=== PATIENT | female | born 1965 | race Two or more races ===

== ENCOUNTER → 2024-11-18 14:49 | Outpatient (BNVA) | payer OTHER, SELFPAY | PROVIDERS: PCP Internal Medicine; Visit Provider Student in an Organized Health Care Education/Training Program | DX: M06.9 Rheumatoid arthritis, unspecified (principal); Z51.81 Encounter for therapeutic drug level monitoring; Z79.69 Long term (current) use of other immunomodulators and immunosuppressants | CPT/HCPCS: 99212 ==

== ENCOUNTER 2025-06-09 13:59 | Outpatient (REF) | payer OTHER, SELFPAY ==
[2025-06-09 17:30] LABS: MANUAL DIFF FLAG NO
[2025-06-09 17:58] LABS: Hematocrit 42.2 % (37.0-47.0); Hemoglobin 13.6 g/dl (12.0-16.0); Imm Gran Abs Auto 0.01 X10*3/uL (0.00-0.03); Imm Gran Pct Auto 0.2 % (0.0-0.4); Lymphocytes Absolute Auto 1.3 X10*3/uL (1.2-4.9); Mean Corpuscular HGB Conc 32.2 g/dl (31.0-35.0); Mean Corpuscular Hemoglobin 28.7 pg (27.0-33.0); Mean Corpuscular Volume 89.0 fL (80.0-98.0); NRBC Abs Auto 0.000 X10*3/uL (0.0-0.012); NRBC Pct Auto 0.0 /100WBC (0.0-0.2); Platelet Count 229 X10*3/uL (160-400); Red Blood Count 4.74 X10*6/uL (4.20-5.50); White Blood Count 5.3 X10*3/uL (4.8-10.8)
[2025-06-09 18:16] LABS: Alanine Aminotransferase 21 U/L (0-31); Albumin Level 4.4 g/dL (3.5-5.0); Alkaline Phosphatase 110 U/L (39-117); Anion Gap 11 (12-20); Aspartate Amino Transferase 22 U/L (5-31); Blood Urea Nitrogen 17 mg/dL (9-16); Calcium 9.4 mg/dL (8.4-10.2); Carbon Dioxide 27 mmol/L (22-29); Chloride 106 mmol/L (96-108); Estimated Glomerular Filt Rate > 60; Potassium 3.9 mmol/L (3.3-5.1); Sodium 140 mmol/L (135-145); Total Protein 7.2 g/dL (6.5-8.0)
[2025-06-10 08:00] LABS: HBS Num1 35.10 mIU/mL (0-7.99); HBc Num1 0.07 S/CO (0.00-0.79); HBsAGNum1 0.57 S/CO (0.00-0.99); Hepatitis A Antibody IgM 0.24 Index (0-0.79); Hepatitis B Surface Antigen Negative (Negative); ~HepC Num1 0.11 S/CO (0.00-0.79); ~Hepatitis A Antibody IgM Nonreactive (Nonreactive); ~Hepatitis B Surface Antibody REACTIVE (Nonreactive); ~Hepatitis C Antibody Nonreactive (Nonreactive)
[2025-06-12 08:33] LABS: TS Negative Control Passed; TS Panel A 0; TS Panel B 0; TS Positive Control Passed; TSpotTB Negative (Negative)
== END 2025-06-09 14:00 | disposition home or self-care (01) ==
LOC: HO.HKASLDS 13:59
PROVIDERS: PCP Internal Medicine; Visit Provider Student in an Organized Health Care Education/Training Program
DX: M06.09 Rheumatoid arthritis without rheumatoid factor, multiple sites (principal); M17.0 Bilateral primary osteoarthritis of knee; Z51.81 Encounter for therapeutic drug level monitoring; Z79.69 Long term (current) use of other immunomodulators and immunosuppressants
CPT/HCPCS: 20610; 36415; 80053; 85025; 85652; 86140; 86481; 86704; 86706; 86709; 86803; 87340; 99212; J2003; J3300

== ENCOUNTER 2025-06-09 13:59 | Outpatient (AMB) | payer OTHER, SELFPAY ==
--- OUTSIDE RECORDS SUMMARY | 2025-06-09 14:08 | XMS_ITS ---
Author Name [facility] Organization Unknown Care Team Organization Name Specialty Phone Email Start Date End Da te [facility] John Torrez Primary Care 08/27/2022 06/07/2024
--- OUTSIDE RECORDS SUMMARY | 2025-06-09 14:08 | XMS_ITS | Clinical Summary ---
Author Organization [facility] [place] Address [address] [place] [address] Care Team Providers Care Donor Processor Name Role Phone Yenny Torrez MD Primary Care Provider [phone] Allergies Active Allergy Reactions Criticality Noted Date Comments Sulfa (Sulfonamide Antibiotics) Other 10/20 Medications No known medications Active Problems Problem Noted Date Diagnosed Date Colon cancer screening 03/15/2025 Rheumatoid arthritis (CMS/[facility] V24, CMS/[facility] V28) 03/15/2025 Obesity (BMI 30-39.9) 03/15/2025 Encounters Date Type Department Care Team Description 03/15/2025 11:30 AM EDT Office Visit Adult Medicine [address] [id number] Yenny Torrez MD Routine general medical examination at a health care facility (Primary Dx); Screening mammogram for breast cancer; Screening for diabetes mellitus; Screening, lipid; Screening, anemia, deficiency, iron; Colon cancer screening; Rheumatoid arthritis, involving unspecified site, unspecified whether rheumatoid factor present (CMS/[facility] V24, CMS/[facility] V28); Obesity (BMI 30-39.9) from Last 3 Months Immunizations Name Administration Dates Next Due Influenza trivalent, with pr eservative (Fluzone; Afluria) 6mo and older 08/23/2014 Td, Unspecified 01/27/2001 Tdap Tetanus diptheria acell ular pertussis (Boostrix; Adacel) 7yo and older 07/17/2015 Surgical History Surgery Date Site/Laterality Comments OTHER SURGICAL HISTORY 06/03 PROCEDURE: MAMMOGRAM Medical History Medical History Date Comments Fatigue 03/12/2011 DX:Fatigue Family History Medical History Relation Name Comments Diabetes Aunt Stroke Father -70s Diabetes Maternal Grandmother Arthritis Mother Arthritis Sister Relation Name Status Comments Aunt Father Maternal Grandmother Mother Alive Sister Alive Social History Tobacco Use Types Packs/Day Years Used Date Smoking Tobacco: Former Smokeless Tobacco: Never Tobacco Cessation:Counseling Given: Not Answered Alcohol Use Standard Drinks/Week Comments No 0 (1 standard drink = 0.6 oz pur e alcohol) Comments No Sex and Gender Information Value Date Recorded Sex Assigned at Not on file Legal Sex Female 9:17 AM EDT Gender Identity Not on file Sexual Orientation Not on file Obstetrics History Last Filed Vital Signs Vital Sign Reading Time Taken Comments Blood Pressure 102/60 03/15/2025 11:24 AM EDT Pulse 79 03/15/2025 11:24 AM EDT Temperature 36.2 C (97.2 F) 03/15/2025 11:24 AM EDT Respiratory Rate 16 03/15/2025 11:24 AM EDT Oxygen Saturation - - Inhaled Oxygen Concentration - - Weight 92.5 kg (204 lb) 03/15/2025 11:24 AM EDT Height 166 cm (5' 5.35 ) 03/15/2025 11:24 AM EDT Body Mass Index 33.58 03/15/2025 11:24 AM EDT Plan of Treatment Upcoming Encounters Date Type Department Care Team (Late st Contact Info) Description 03/16/2026 11:30 AM EDT Office Visit Adult Medicine [facility] [address] [place] [address] Yenny Torrez MD [address] [place] [address] Health Maintenance Due Date Last Done Comments Breast Cancer Screening 1965 Pneumococcal Vaccine: 50+ Years (1 of 1 - PCV) 2014 Zoster Vaccines (1 of 2) 2014 Cervical Cancer Screening: P ap Smear 04/03/2015 04/03/2012, 04/03/2012 Colorectal Cancer Screening: Colonoscopy 01/16/2021 HIV Screening 01/16/2021 Social Influencers of Health Screening 01/16/2021 Hepatitis B Vaccines (2 of 3 - 19+ 3-dose series) 04/02/2023 03/05/2023 COVID-19 Vaccine (3 - 2023-2 5 season) 2024 06/30/2021, 02/15/2021 Depression Screening 10/20/2024 Influenza Vaccine (#1) 2025 08/23/2014 DTaP,Tdap,and Td Vaccines (3 - Td or Tdap) 07/17/2025 07/17/2015, 01/27/2001 Cholesterol Screening (Lipid Panel) 03/15/2030 03/15/2025, 05/02/2015 RSV Immunization Adult Patients (1 - 1-dose 75+ series) 2039 Hepatitis C Screening Completed 02/22/2011 HIB Vaccines Aged Out No longer eligi ble based on patient's age to complete this topic HPV Vaccines Aged Out No longer eligi ble based on patient's age to complete this topic Hepatitis A Vaccines Aged Out No long er eligible based on patient's age to complete this topic IPV Vaccines Aged Out No longer eligi ble based on patient's age to complete this topic MMR Vaccines Aged Out No longer eligi ble based on patient's age to complete this topic Meningococcal ACWY Vaccine Aged Out N o longer eligible based on patient's age to complete this topic Meningococcal B Vaccine Aged Out No l onger eligible based on patient's age to complete this topic RSV Immunization Patients Under 20 months Aged Out No longer eligible b ased on patient's age to complete this topic Varicella Vaccines Aged Out No longer eligible based on patient's age to complete this topic Procedures Procedure Name Priority Date/Time Associated Diagnosis Comments CBC WITH AUTO DIFFERENTIAL Routine 03/15/2025 12:27 PM EDT Screening, anemia, deficiency, iron CBC AND DIFFERENTIAL Routine 03/15/2025 12:27 PM EDT Screening, anemia, deficiency, iron COMPREHENSIVE METABOLIC PANEL Routine 03/15/2025 12:27 PM EDT Screening for diabetes mellitus LIPID PANEL WITH REFLEX TO DIRECT LDL Routine 03/15/2025 12:27 PM EDT Screening, lipid HM HPV Routine 04/03/2012 HEPATITIS C SCREENING Routine 02/22/2011 from Last 3 Months or Most Recently Relevant to Health Maintenance Results * (ABNORMAL) Lipid panel with reflex to direct LDL (03/15/2025 12:27 PM EDT) Cholesterol 206(H) 0 - 200 mg/dL LAB CHEMISTRY METHOD 03/15/2025 4:43 PM EDT [facility] Triglycerides 109 0 - 150 mg/dL LAB CHEMISTRY METHOD 03/15/2025 4:43 PM EDT [facility] HDL 56 >=40 mg/dL LAB CHEMISTRY METHOD 03/15/2025 4:43 PM EDT [facility] LDL Calculated 128(H) 0 - 100 mg/dL LAB CHEMISTRY METHOD 03/15/2025 4:43 PM EDT [facility] VLDL Cholesterol Jose Alejandro 21.8 mg/dL LAB CHEMISTRY METHOD 03/15/2025 4:43 PM EDT [facility] Non HDL Chol. (LDL+VLDL) 150(H) <145 mg/dL LAB CHEMISTRY METHOD 03/15/2025 4:43 PM EDT [facility] Chol/HDL Ratio 3.7 0.0 - 4.4 LAB CHEMISTRY METHOD 03/15/2025 4:43 PM EDT [facility] Blood Venous blood specimen / Unknown Venipuncture / Unknown 03/15/2025 12:27 PM EDT 03/15/2025 12:27 PM EDT us C Perico Torrez MD LAB BLOOD ORDERABLES Final Res ult [facility] [address] [place] [address], [place] [phone] * (ABNORMAL) CBC auto differential (03/15/2025 12:27 PM EDT) WBC 5.9 4.8 - 10.8 K/mcL LAB HEMETOLOGY METHOD 03/15/2025 3:09 PM [facility] RBC 4.90(H) 3.80 - 4.80 M/mcL LAB HEMETOLOGY METHOD 03/15/2025 3:09 PM [facility] Hemoglobin 14.1 11.5 - 16.0 g/dL LAB HEMETOLOGY METHOD 03/15/2025 3:09 PM [facility] Hematocrit 45.1 35.0 - 47.0 % LAB HEMETOLOGY METHOD 03/15/2025 3:09 PM [facility] MCV 92.8 79.0 - 98.0 FL LAB HEMETOLOGY METHOD 03/15/2025 3:09 PM [facility] MCH 29.0 27.0 - 32.0 pcg LAB HEMETOLOGY METHOD 03/15/2025 3:09 PM [facility] MCHC 31.3(L) 32.0 - 37.0 g/dL LAB HEMETOLOGY METHOD 03/15/2025 3:09 PM [facility] RDW 12.9 11.0 - 15.0 % LAB HEMETOLOGY METHOD 03/15/2025 3:09 PM [facility] Platelets 238 130 - 400 K/mcL LAB HEMETOLOGY METHOD 03/15/2025 3:09 PM [facility] MPV 11.1(H) 7.0 - 11.0 FL LAB HEMETOLOGY METHOD 03/15/2025 3:09 PM [facility] NRBC 0.0 <1.0 % LAB HEMETOLOGY METHOD 03/15/2025 3:09 PM [facility] NRBC Absolute 0.00 <0.10 K/mcL LAB HEMETOLOGY METHOD 03/15/2025 3:09 PM [facility] Neutrophils Relative 63.7 % LAB HEMETOLOGY METHOD 03/15/2025 3:09 PM [facility] Lymphocytes Relative 25.2 % LAB HEMETOLOGY METHOD 03/15/2025 3:09 PM [facility] Monocytes Relative 7.8 % LAB HEMETOLOGY METHOD 03/15/2025 3:09 PM [facility] Eosinophils Relative 2.2 % LAB HEMETOLOGY METHOD 03/15/2025 3:09 PM [facility] Basophils Relative 0.9 % LAB HEMETOLOGY METHOD 03/15/2025 3:09 PM [facility] Immature Granulocytes Relative 0.2 % LAB HEMETOLOGY METHOD 03/15/2025 3:09 PM [facility] Neutrophils Absolute 3.75 1.50 - 7.00 K/mcL LAB HEMETOLOGY METHOD 03/15/2025 3:09 PM [facility] Lymphocytes Absolute 1.48 1.00 - 5.00 K/mcL LAB HEMETOLOGY METHOD 03/15/2025 3:09 PM [facility] Monocytes Absolute 0.46 0.20 - 1.00 K/mcL LAB HEMETOLOGY METHOD 03/15/2025 3:09 PM [facility] Eosinophils Absolute 0.13 0.00 - 0.50 K/mcL LAB HEMETOLOGY METHOD 03/15/2025 3:09 PM [facility] Basophils Absolute 0.05 0.00 - 0.20 K/mcL LAB HEMETOLOGY METHOD 03/15/2025 3:09 PM [facility] Immature Granulocytes Absolute 0.01 0.00 - 0.03 K/mcL LAB HEMETOLOGY METHOD 03/15/2025 3:09 PM [facility] Blood Venous blood specimen / Unknown Venipuncture / Unknown 03/15/2025 12:27 PM EDT 03/15/2025 12:27 PM EDT [facility] Perico Torrez MD LAB BLOOD ORDERABLES Final Res ult [facility] [address] [place] [address], [place] [phone] * Comprehensive metabolic panel (03/15/2025 12:27 PM EDT) Sodium 136 133 - 145 mmol/L LAB CHEMISTRY METHOD 03/15/2025 4:43 PM [facility] Potassium 4.4 3.5 - 5.5 mmol/L LAB CHEMISTRY METHOD 03/15/2025 4:43 PM [facility] Chloride 102 96 - 110 mmol/L LAB CHEMISTRY METHOD 03/15/2025 4:43 PM [facility] CO2 27 21 - 32 mmol/L LAB CHEMISTRY METHOD 03/15/2025 4:43 PM [facility] Anion Gap 7 3 - 11 LAB CHEMISTRY METHOD 03/15/2025 4:43 PM [facility] Glucose 91 70 - 100 mg/dL LAB CHEMISTRY METHOD 03/15/2025 4:43 PM [facility] BUN 14 5 - 25 mg/dL LAB CHEMISTRY METHOD 03/15/2025 4:43 PM [facility] Creatinine 0.74 0.50 - 1.10 mg/dL LAB CHEMISTRY METHOD 03/15/2025 4:43 PM [facility] eGFR 93 >=60 mL/min/1. 73m2 LAB CHEMISTRY METHOD 03/15/2025 4:43 PM [facility] Comment:Calculation based on the Chronic Kidney Disease Epidemiology Collaboration (CKD-EPI) equation refit without adjustment for race. BUN/Creatinine Ratio 18.9 LAB CHEMISTRY METHOD 03/15/2025 4:43 PM [facility] Calcium 9.8 8.5 - 10.5 mg/dL LAB CHEMISTRY METHOD 03/15/2025 4:43 PM EDT [facility] AST (SGOT) 16 10 - 42 unit/L LAB CHEMISTRY METHOD 03/15/2025 4:43 PM [facility] ALT (SGPT) 27 10 - 60 unit/L LAB CHEMISTRY METHOD 03/15/2025 4:43 PM EDT [facility] Alkaline Phosphatase 103 42 - 121 unit/L LAB CHEMISTRY METHOD 03/15/2025 4:43 PM T [facility] Total Protein 7.4 6.0 - 8.0 g/dL LAB CHEMISTRY METHOD 03/15/2025 4:43 PM [facility] Albumin 4.0 3.2 - 5.0 g/dL LAB CHEMISTRY METHOD 03/15/2025 4:43 PM T [facility] Total Bilirubin 0.5 0.0 - 1.4 mg/dL LAB CHEMISTRY METHOD 03/15/2025 4:43 PM EDT [facility] Blood Venous blood specimen / Unknown Venipuncture / Unknown 03/15/2025 12:27 PM EDT 03/15/2025 12:27 PM EDT us Yenny Torrez MD LAB BLOOD ORDERABLES Final Res ult [facility] [address] [place] [address], * Cervical Cancer Screening: HPV (04/03/2012) Pathologist [facility] Cervical Cancer Screening: HPV no interpretation , abstracted us Nasrin Medina MD HEALTH MAINTENANCE Final Result * Hepatitis C Screening (02/22/2011) Pathologist [facility] Hepatitis C Screening abstracted us Nasrin Medina MD HEALTH MAINTENANCE Final Result from Last 3 Months or Most Recently Relevant to Health Maintenance Insurance [facility] [employer] Care Teams Donor Processor Relationship Specialty Start Date End Date Yenny Torrez MD [address] [place] [id number] PCP - General Internal Medicine 01/15/21
[2025-06-09 14:21] VITALS: BP 118/70; PULSE 85; O2SAT 98; BMI 34.2
--- NOTE | 2025-06-09 14:21 | MHC.OFFVIS ---
Vital Signs 06/09/25 14:21 Height 5 ft 5 in Weight 205 lb 7.533 oz BMI 34.2 BP 118/70 Blood Pressure Location Lt brachial Position Sitting Pulse 85 Pulse Source Pulse Oximeter Pulse Oximetry (%) 98 Oxygen Delivery Method Room Air Intake Visit Reasons: follow up Intake Note: Patient presents for RA follow up today. She states she never took the injectable. Patient would like to talk about etoldac today. Allergies epinephrine Allergy (Intermediate, Verified 06/09/25 14:30) increased heart rate Sulfa (Sulfonamide Antibiotics) Allergy (Intermediate, Verified 06/09/25 14:30) Rash methotrexate Adverse Reaction (Intermediate, Verified 06/09/25 14:30) Transaminitis Medication List - Last Reconciled 06/09/25 by Valerie Parsons MD ibuprofen 200 mg PO Q6H PRN HPI Comments Details: Patient is a 59-year-old female with no significant past medical history who presents for follow up of seronegative rheumatoid arthritis. Interval History: Patient last seen 11/18/2024 - Not on DMARDs - Did not start Hydroxychloroquine due to provider leaving practice - Complained of prolonged morning stiffness and swelling to her hands and overall achiness to her joints - started on leflunomide 10mg Today, - Not currently on any rheum medications - Started the leflunomide and self discontinued after 1 month - Trialled Enbrel and HCQ but did not start those either - Still having pain but is managing it with ibuprofen Rheumatologic History: Patient diagnosed with rheumatoid arthritis 02/2024. MTX started 05/2024. DC 07/2024 due to significant MTX flu and transaminitis Leflunomide - nausea Enbrel - did not start, does not want injectables - HCQ - nausea Current Rheumatology Medication(s): [facility] Medical History Seasonal rhinitis Seasonal allergic conjunctivitis Thyroid nodule Obesity Fatigue Bilateral leg edema Surgical History H/O mammogram Family History Mother Arthritis Father CVA (cerebral vascular accident) Maternal Grandmother Diabetes Sister Rheumatoid arthritis Brother Rheumatoid arthritis Social History (System 12/23/24 @ 12:50 by Elvi Garvin) Household Members: Spouse Household Members Other:: Daughter Alcohol intake: current Alcohol intake frequency: a few times a week Alcohol type: wine Patient Tobacco Use Status: Former Tobacco user Current occupational status: employed Current occupation: self employed Review of Systems Const Details: Review of Systems Constitutional: Denies fever, chills, weight loss ENT: Denies vision changes, eye pain or eye redness, dental caries, dry mouth GI: Denies nausea, vomiting, diarrhea, abdominal pain, change in BM Pulm: Denies SOB, SALINAS, hemoptysis, wheezing Cards: Denies chest pain, palpitations Skin: Denies Raynaud's, rash, nail changes, photosensitivity, CIRCULATION SUPERVISOR: Denies headaches, weakness, paresthesias, recurrent falls MSK: as per HPI All other systems reviewed and are unremarkable except noted above Physical Exam Exam Exam: Vital signs reviewed Physical Examination CONSTITUITIONAL Patient alert and cooperative. Well appearing and in no apparent painful distress MSK Hands Right Hand: Able to make a fist. No swelling or tenderness to palpation of these joints. Left Hand: Able to make a fist. No swelling or tenderness to palpation of these joints. Herbedens nodes noted bilaterally Wrists Right Wrist: Full ROM. 70 degrees of wrist flexion, 80 degrees of wrist extension. No swelling or TTP Left Wrist: Full ROM. 70 degrees of wrist flexion, 80 degrees of wrist extension. No swelling or TTP Elbows Right Elbow: Full ROM. No swelling or TTP. No TTP of the medial and lateral epicondyles Left Elbow: Full ROM. No swelling or TTP. No TTP of the medial and lateral epicondyles Shoulders Right shoulder: Full ROM. No swelling noted. No TTP of the AC joint, subacromial bursa or posterior shoulder Left shoulder: Full ROM. No swelling noted. No TTP of the AC joint, subacromial bursa or posterior shoulder Knees Right knee: Full ROM. No swelling noted. No TTP of the pes anserine bursa Left knee: Full ROM. No swelling noted. No TTP of the pes anserine bursa. Crepitations felt bilaterally TTP of the knee joint line bilaterally Ankles Right ankle: Good ankle dorsiflexion and plantar flexion. No swelling. No TTP of the ankle joint Left ankle: Good ankle dorsiflexion and plantar flexion. No swelling. No TTP of the ankle joint Feet Right foot: Negative squeeze test Left foot: Negative squeeze test Tender points? No tenderness to palpation of the bilateral trapezius, supraspinatus, anterior costochondral junctions, bilateral suboccipital muscle insertions SKIN No rashes Vital Signs: Last Vital Signs Pulse 85 06/09/25 14:21 BP 118/70 06/09/25 14:21 Pulse Ox 98 06/09/25 14:21 Oxygen Delivery Method Room Air 06/09/25 14:21 BMI result Body Mass Index 34.2 Office Procedures AMB Joint Injection/Aspiration Joint Injection/Aspiration Details: Procedure was explained to the patient and informed consent was obtained. ? Risks associated with the procedure were discussed with the patient including but not limited to bleeding, infection, drug reactions and reactions to the topical anesthetic. Patient made aware of signs to look out for infectious complications. The area of interest was identified and confirmed with patient. ?This was subsequently cleaned with chlorhexidine x 2. ? The area was then anesthetized using ethyl chloride spray. 40 mg Kenalog with 1 cc 1% lidocaine was injected without issue. ?Minimal to no bleeding. ?Patient tolerated procedure. Primary Site: right knee Prep: site was prepped using aseptic technique and ethochloride spray was applied Injected: 40 mg of, Kenalog, with 1 mL of and 1% plain lidocaine Approach Used: anterior Procedure: The patient tolerated the procedure well Coding 05960 - Large joint Procedure code (CPT) selection complete AMB Joint Injection/Aspiration Joint Injection/Aspiration Details: Procedure was explained to the patient and informed consent was obtained. ? Risks associated with the procedure were discussed with the patient including but not limited to bleeding, infection, drug reactions and reactions to the topical anesthetic. Patient made aware of signs to look out for infectious complications. The area of interest was identified and confirmed with patient. ?This was subsequently cleaned with chlorhexidine x 2. ? The area was then anesthetized using ethyl chloride spray. 40 mg Kenalog with 1 cc 1% lidocaine was injected without issue. ?Minimal to no bleeding. ?Patient tolerated procedure. Primary Site: left knee Prep: site was prepped using aseptic technique and ethochloride spray was applied Injected: 40 mg of, Kenalog, with 1 mL of and 1% plain lidocaine Approach Used: anterior Procedure: The patient tolerated the procedure well Coding 42582 - Large joint Procedure code (CPT) selection complete Office Meds lidocaine (PF) 10 mg/mL (1 %) injection solution Performing Provider: Valerie Parsons MD Performing Location: [facility] Administered by: Valerie Parsons MD on 06/09/25 15:08 Dose Route Admin Location Dispensed Lot Number Expiration Date [place] Visiting Nurse 1 mL Infiltration right knee 2 mL [id number] 02/17/27 18567-986-07 [employer] Total Dispensed Waste 2 mL 50 % Kenalog 40 mg/mL suspension for injection Performing Provider: Valerie Parsons MD Performing Location: [facility] Administered by: Valerie Parsons MD on 06/09/25 15:08 Dose Route Admin Location Dispensed Lot Number Expiration Date [facility] Visiting Nurse 40 mg intra-articular right knee 1 mL [id number] 03/20/26 [address]-5 [employer] Total Dispensed Waste 1 mL 0 % lidocaine (PF) 10 mg/mL (1 %) injection solution Performing Provider: Valerie Parsons MD Performing Location: [facility] Administered by: Valerie Parsons MD on 06/09/25 15:08 Dose Route Admin Location Dispensed Lot Number Expiration Date [place] Visiting Nurse 1 mL Infiltration left knee 2 mL [id number] 02/17/27 32362-555-53 [employer] Total Dispensed Waste 2 mL 50 % Kenalog 40 mg/mL suspension for injection Performing Provider: Valerie Parsons MD Performing Location: [facility] Administered by: Valerie Parsosn MD on 06/09/25 15:08 Dose Route Admin Location Dispensed Lot Number Expiration Date [facility] Visiting Nurse 40 mg intra-articular left knee 1 mL [id number] 03/20/26 [address]-7 [employer] Total Dispensed Waste 1 mL 0 % Results Reviewed Results Reviewed: Laboratory Tests 03/24/24 08/09/24 14:34 11:20 WBC 6.0 RBC 4.70 Hgb 14.1 Hct 43.6 Plt Count 255 ESR 6 Sodium 141 Potassium 4.2 Chloride 104 Carbon Dioxide 30 H BUN 13 Creatinine 0.77 AST 84 H ALT 184 H C-Reactive Protein 0.56 H 0.44 Laboratory Tests 03/24/24 14:34 Rheumatoid Factor < 13.0 Cycl Citrul Peptide IgG <16 HLA-B27 Negative Assessment & Plan Assessment & Plan (1) Rheumatoid arthritis: Comment: -ve RF -ve CCP dx 02/2024 MTX started 05/2024. DC 07/2024 due to significant MTX flu and transaminitis Code(s): M06.9 - Rheumatoid arthritis, unspecified Category: Medical Qualifiers: Rheumatoid arthritis location: multiple sites Rheumatoid factor presence: without rheumatoid factor Qualified Code(s): M06.09 - Rheumatoid arthritis without rheumatoid factor, multiple sites Plan: #Seronegative RA Patient is a 59 year-old female with a diagnosis of seronegative rheumatoid arthritis here today for follow up. No active synovitis on examination and patient would rather be monitored off DMARDs at this time. She is okay with doing PRN ibuprofen for her bad days Plan - Stop Enbrel and HCQ - Continue ibuprofen 400mg prn - Labs today: CBC, CMP, ESR, CRP - RTC 6 months (2) Bilateral primary osteoarthritis of knee: Code(s): M17.0 - Bilateral primary osteoarthritis of knee Plan: #Bilateral Knee OA Patient complaining of bilateral knee pain. Exam consistent with bilateral knee osteoarthritis. s/p steroid injection today Plan I spent 30 minutes reviewing the record and labs, taking a history, examining the patient, discussing the treatment plan and documenting in the medical record Orders: Orders AMB Joint Injection/Aspiration Today M17.0 - Bilateral primary osteoarthritis of knee AMB Joint Injection/Aspiration Today M17.0 - Bilateral primary osteoarthritis of knee Coding Level of Care Code Est Pt Level 4 (25798) Diagnoses Rheumatoid arthritis of multiple sites with negative rheumatoid factor M06.09 Rheumatoid arthritis location: multiple sites Rheumatoid factor presence: without rheumatoid factor Bilateral primary osteoarthritis of knee M17.0 CPT Codes Coding - 03189 Large joint: 46456 - Large joint ([id number]) Coding - 10950 Large joint: 34296 - Large joint ([id number])
== END 2025-06-09 15:04 | disposition home or self-care (01) ==
LOC: HO.RHES 13:59
PROVIDERS: PCP Internal Medicine; Visit Provider Student in an Organized Health Care Education/Training Program
DX: M06.09 Rheumatoid arthritis without rheumatoid factor, multiple sites (principal); M17.0 Bilateral primary osteoarthritis of knee
CPT/HCPCS: 20610; 99214